=== PATIENT | female | born 1970 | race African-American/Black ===

== ENCOUNTER 2016-05-05 14:36 | Inpatient (IN) | payer BC ==
[~2016-05-05] VITALS: Ht 175.3 cm; Wt 117.9 kg
--- NOTE | ~2016-05-05 | 2DMMODE ---
[facility] [employer] [place] [address] 2 D/M-MODE ECHOCARDIOGRAM Name: AALIYAH VERGARA Room #: 401-I ADM IN .R.#: [id number] Admission: 05/05/16 Attend Phys: Cely Sevilla Discharge: Date of : 68 Date of Service: 05/08/16 1052 Report #: [id number] THIS REPORT FOR: //name// Transthoracic Echocardiography Ordering physician: Dayne Da Silva Referring physician: Rogelio Barbour M.D., FBrittany Mckinnon, Dayne Chau Director Organizational: [employer] Indications/History: Dyspnea, Asthma. BP: 154 / HR: 80bpm Height: 69in Weight: 259.5lb 82 Study data: M-mode, complete 2D, complete spectral Doppler, and color Doppler. Location: Echo laboratory. Routine. Image quality was fair. 2D measurements Normal Normal LVID ED 49.6mm 36-57 IVS ED 8.9mm 6-11 LVID ES 32.9mm 23-40 LVPW ED 8.8mm 6-11 LA volume 18ml/m2 16-28 AoRoot diam 29.5mm 21-37 index ED LVOT diameter 22mm 18-23 Findings: Left ventricle: The cavity size was normal. Wall thickness was normal. Systolic function was normal. The estimated ejection fraction was in the range of 60% to 65%. Wall motion was normal. Right ventricle: The cavity size was normal. Systolic function was normal. Right atrium: The atrium was normal in size. Left atrium: The atrium was normal in size. Volume index: 18ml/m2 (S). Aortic valve: Trileaflet. Doppler: There was no stenosis. No regurgitation. Peak velocity: 146.1cm/s [facility] [address] [place] [address] 2 D/M-MODE ECHOCARDIOGRAM Name: AALIYAH VERGARA Room #: 401-I [facility] IN Calli#: [id number] Admission: 05/05/16 Attend Phys: Daynecarley Da Silva Cely Discharge: Date of : 68 Date of Service: 05/08/16 1052 Report #: [id number] ([id number]). Mitral valve: Structurally normal valve. Doppler: There was no evidence for stenosis. Trivial regurgitation. Peak E-wave velocity: 106.5cm/s. Peak gradient: 4.5mm Hg (D). Peak A-wave velocity: 84.1cm/s. Tricuspid valve: Structurally normal valve. Doppler: There was no evidence for stenosis. Trivial regurgitation. Pulmonic valve: Structurally normal valve. Doppler: There was no evidence for stenosis. No regurgitation. Pericardium: There was no pericardial effusion. Aorta: Aortic root: The aortic root was normal in size. Pulmonary artery: Pressure could not be reliably determined due to minimal or absent tricuspid insufficiency jet, but pulmonary hypertension was not suggested. Diastolic function: Normal diastolic function. Systemic veins: Inferior vena cava: The vessel was normal in size; the respirophasic diameter changes were in the normal range (= 50%). Conclusions Left ventricle: Systolic function was normal. The estimated ejection fraction was in the range of 60% to 65%. <ELECTRONICALLY SIGNED> By: Rogelio Barbour MD, [facility] 05/08/16 1151 1052 1151 Rogelio Barbour MD, [facility] /polo
--- NOTE | ~2016-05-05 | EKG ---
[place] [address] [facility] [place] [address] ELECTROCARDIOGRAM REPORT Name: AALIYAH VERAGRA Room #: 541-P ADM IN M.R.#: [id number] Admission: 05/05/16 Attend Phys: Dayne Da Silva MD Discharge: Date of : 68 Report #: [id number] THIS REPORT FOR: //name// [facility] Test Date: 2016-05-05 Test Time: 16:51:20 Pat Name: AALIYAH BUSCHLER Department: Room: 541 Gender: F First Aid Director: Cely CARABALLO : 1970 Requested By: Dayne Da Silva Order Number: [id number] MD: Oleg Espana Measurements Intervals [place] Rate: 82 P: 36 CO: 151 QRS: 63 QRSD: 78 T: 36 QT: 392 QTc: 458 Interpretive Statements Sinus rhythm No significant abnormality No previous ECG available for comparison Electronically Signed On 05-07-2016 14:05:21 TRACK REPAIR PERSON by Oleg Espana [email or web address] <ELECTRONICALLY SIGNED> By: Oleg Espana MD, [facility] 05/07/16 1405 1651 50 Oleg Espana MD, FACC /EPI
--- NOTE | ~2016-05-05 | H ---
[facility] [place] [address] [place] [address] HISTORY AND PHYSICAL Name: AALIYAH VERGARA Room #: 541-P [facility] IN M.R.#: [id number] Admission: 05/05/16 Attend Phys: Dayne Da Silva MD Discharge: Date of : 68 Report #: [id number] THIS REPORT FOR: //name// CC: Jean Da Silva DATE OF SERVICE: 05/05/2016 CHIEF COMPLAINT: Shortness of breath and cough. HISTORY OF PRESENT ILLNESS: The patient is a 46-year-old female with history of asthma, adult onset, presented to the Emergency Room complaining of shortness of breath and cough. The patient was referred for admission from Dr. Mckinnon's office. The patient has had shortness of breath and cough since end of February. She took azithromycin initially and then, she just recently completed a round of doxycycline a few days ago. She has some discomfort with the cough. She has also been having increasing wheeze in spite of being on steroids and nebulizers at home. Cough has been mostly dry except for over the last few days when it has been low tinged. No history of any hemoptysis. The patient denies any fever or chills. She has gained some weight over the last month or so. PAST MEDICAL HISTORY: Significant for asthma. No history of hypertension, no diabetes, no coronary artery disease. 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 She has a muscle stretch in her lower extremity, history of hysterectomy. History of section x 2. No history of any peptic ulcer disease or bleeding disorder. ALLERGIES: She is allergic to SULFA causes rash. HOME MEDICATIONS: Include Xopenex, Singulair, loratadine, Asmanex. She has been taking prednisone since end of February. SOCIAL HISTORY: No smoking, alcohol abuse or illicit drug abuse. The patient works at the [employer]. Apparently, she works down in the basement, which is kind of lilian and also, they have been doing some work on the vent in the basement. FAMILY HISTORY: Significant for hypertension. REVIEW OF SYSTEMS: CONSTITUTIONAL: She has gained some weight. No fever, no chills. EYES: No change in vision. THROAT: Denies any sore throat. CARDIOVASCULAR: No dizziness. No palpitation. RESPIRATORY: As above. [facility] [address] [place] [address] HISTORY AND PHYSICAL Name: AALIYAH EVRGARA Room #: 541-P [facility] IN ..#: [id number] Admission: 05/05/16 Attend Phys: Dayne Da Silva MD Discharge: Date of : 68 Report #: [id number] GASTROINTESTINAL: No nausea, vomiting, abdominal pain. GENITOURINARY: No dysuria, hematuria. NEUROLOGIC: No focal numbness or weakness of the extremities. PSYCHIATRIC: No anxiety or depression. A 12-point review of system is negative other than the positive and negative dictated in the history of present illness and the review of system. PHYSICAL EXAMINATION: VITAL SIGNS: Reviewed. GENERAL: The patient is awake and alert, not in acute respiratory distress. EYES: Pupils equal, reactive to light, nonicteric conjunctivae. THROAT: Appears normal. NECK: Supple, no JVD, no bruit, no lymphadenopathy. CARDIOVASCULAR SYSTEM: S1, S2, negative S3, no murmur. CHEST: Bilateral air entry present. Expiration is prolonged, bilateral wheeze present. Poor air movement. ABDOMEN: Soft, bowel sounds present, no mass, no organomegaly, no tenderness. PERIPHERY: No pedal edema. No calf tenderness. Dorsalis pedis 1+. NEUROLOGICAL: No gross motor or sensory deficit. LABORATORY DATA: Pending. ASSESSMENT: 1. Acute on chronic respiratory failure secondary to asthma exacerbation. 2. Asthma exacerbation. The patient will be started on IV steroid and nebulizer. We will obtain sputum culture and sensitivity and chest x-ray. We will start her on IV levofloxacin. I will also send for a viral PCR and also for influenza test. We will consult Drivers' Cash Clerk. 3. Deep venous thrombosis prophylaxis. The patient will be placed on Lovenox for deep venous thrombosis prophylaxis. 4. Oral thrush. The patient will be placed on nystatin swish and swallow. 5. Insomnia. She will be started on p.r.n. Ambien. 6. Allergic rhinitis. We will add Flonase. Treatment plan has been explained to the patient in detail. <ELECTRONICALLY SIGNED> By: Dayne Da Silva MD 05/06/16 1146 1537 1739 Dayne Da Silva MD /nt
--- NOTE | ~2016-05-05 | HC ---
[facility] [place] [address] [place] [address] CONSULTATION Name: AALIYAH VERGARA Room #: 401-I [facility] IN ..#: [id number] Admission: 05/05/16 Attend Phys: Dayne Da Silva MD Discharge: 05/09/16 Date of : 68 Report #: [id number] THIS REPORT FOR: //name// CC: Jean Da Silva PRIMARY CARE PHYSICIAN: Narinder Mckinnon M.D. REFERRING PHYSICIAN: Dayne Da Silva M.D. REASON FOR REFERRAL: Exacerbation of asthma. HISTORY OF PRESENT ILLNESS: The patient is a 46-year-old -[place] female who has been admitted for dyspnea. She has asthma. A pulmonary consultation was requested. The patient was diagnosed with asthma about 6 years ago. She was last seen by Dr. Rao 5 years ago. She is on maintenance inhaled bronchodilator therapy along with steroid therapy. She had been doing very well until February of past year when she started to develop cough and chest congestion and dyspnea. Symptoms progressively worsened to where she was admitted. She has a mild cough productive of yellowish sputum. Otherwise, denies any fever, chest pain, hemoptysis, nausea, vomiting or diarrhea. The patient has smoked for about 10 years, but quit 2 years ago after smoking about a pack a day. Otherwise, denies any past history of respiratory failure. PAST MEDICAL HISTORY: She was born premature. She had undergone heart surgery in the past. She has allergies primary during late fall and winter months. Diagnosis of asthma as mentioned above. Gastroesophageal reflux disease. PAST SURGICAL HISTORY: She has had heart surgery along with hysterectomy. ALLERGIES: To SULFA, which causes hives. HOME MEDICATIONS: Include Xopenex (albuterol does not help), Asmanex, Sudafed p.r.n., Singulair and fluticasone nasal spray. She also takes loratadine. FAMILY HISTORY: Remarkable for diabetes and hypertension. SOCIAL HISTORY: She is , has 2 children. Tobacco history as mentioned above. She denies any alcohol use. She works in [employer]. REVIEW OF SYSTEMS: As mentioned above; otherwise, 10-point system review negative. [facility] [address] [place] [address] CONSULTATION Name: AALIYAH VERGARA Room #: 401-I [facility]#: [id number] Admission: 05/05/16 Attend Phys: Dayne Da Silva MD Discharge: 05/09/16 Date of : 68 Report #: [id number] PHYSICAL EXAMINATION: GENERAL: She is awake and alert, in no apparent distress. VITAL SIGNS: Pulse is 93, respiratory rate is 22, blood pressure 146/95 mmHg and saturation is 100%. HEENT: Normocephalic and atraumatic. NECK: Supple without any lymphadenopathy or thyromegaly. CHEST: Breath sounds are decreased bilaterally without any obvious rales or wheezes. CARDIOVASCULAR: Heart sounds are distant. No obvious murmurs or gallop. Pulses are 2+/4+ bilaterally. BREASTS: Exam is deferred. ABDOMEN: Soft and nontender, no organomegaly or masses felt. GENITOURINARY: Deferred. RECTAL: Deferred. EXTREMITIES: There is no edema, cyanosis or clubbing. LABORATORY DATA: Chest x-ray revealed clear lung kirkpatrick. Rest of the laboratory data is pending. IMPRESSION: 1. Exacerbation of asthma, appears to be mild persistent. 2. Possible acute bronchitis. 3. Gastroesophageal reflux disease. She has been on antireflux therapy. 4. Allergic rhinitis, primarily during late fall and winter. 5. Moderate obesity. The patient notes that she has been gaining weight over the past few years. RECOMMENDATIONS: Agree with current medical treatment plan to include corticosteroids and bronchodilators. Antibiotics is appropriate, but would consider switching Levaquin to Rocephin or doxycycline given recent black box warning regarding Levaquin by the FDA. DVT and GI prophylaxis will be addressed. While on high dose systemic corticosteroids, inhaled corticosteroids can be on hold for now. She should be also on antireflux therapy. Thank you for this consultation. <ELECTRONICALLY SIGNED> By: Bran Barrett MD 05/12/16 1634 1725 0004 Bran Barrett MD /nt
[~2016-05-05 14:36] MED LIST: ADVAIR 250-501 EACH IH; AVELOX 400 MG400 MG PO; EXPECTORAN100 MG/5 M PO; FLONASE 0.05%50 MCG NS; K-DUR 20 MEQ T20 MEQ PO; LEVAQUIN 500 M500 M5 PO; NASAL SPRAY45 ML NS; PREDNISONE 5 MG5 M1 PO; PREDNISONE PO; PROTONIX40 M2 PO; SINGULAIR; XOPENEX HF1 UDINHALE IH; XOPENEX0.31 MG/3 IH
[2016-05-05 15:42] VITALS: BP 146/95
[2016-05-05 18:32] LABS: ABSOLUTE NEUTROPHILS 5.2 thou/uL (1.4-8.2); BASOPHILS 1.1 % (0.0-2.0); EOSINOPHILS 1.5 % (0.0-3.0); HEMATOCRIT 43.4 % (37.0-47.0); HEMOGLOBIN 14.8 gm/dL (12.0-15.0); LYMPHOCYTES 30.2 % (24.0-44.0); MCH 29.6 pg (26.0-34.0); MCHC 34.1 % (28.0-37.0); MCV 86.8 fL (80.0-100.0); MONOCYTES 7.9 % (1.0-8.0); PLATELET COUNT 200 thou/uL (150-400); POLYS 59.3 % (36.0-66.0); RDW 14.4 % (10.5-14.5); WBC 8.7 thou/uL (4.0-11.0)
[2016-05-05 18:34] LABS: MANUAL DIFF NO
[2016-05-05 18:48] LABS: ALBUMIN 3.3 g/dL (3.4-5.0); ALKALINE PHOSPHATASE 97 U/L (46-116); ANION GAP 7 mmol/L (7-16); BUN 11 mg/dL (7-18); CALCIUM 8.7 mg/dL (8.5-10.1); CHLORIDE 107 mmol/L (98-107); CO2 30 mmol/L (21-32); CREATININE 1.2 mg/dL (0.6-1.3); GLUCOSE 93 mg/dL (70-99); POTASSIUM 3.6 mmol/L (3.5-5.1); SGOT < 5 U/L (15-37); SGPT 21 U/L (30-65); SODIUM 144 mmol/L (136-145); TOTAL BILIRUBIN 0.4 mg/dL (<0.1-1.0); TOTAL PROTEIN 6.9 g/dL (6.4-8.2)
[2016-05-05 19:59] VITALS: BP 142/103
[2016-05-06 01:47] VITALS: BP 143/81
[2016-05-06 04:51] VITALS: BP 130/80
[2016-05-06 07:47] LABS: ABSOLUTE NEUTROPHILS 11.4 thou/uL (1.4-8.2); BASOPHILS 0.2 % (0.0-2.0); HEMATOCRIT 44.4 % (37.0-47.0); HEMOGLOBIN 14.4 gm/dL (12.0-15.0); LYMPHOCYTES 9.2 % (24.0-44.0); MCHC 32.5 % (28.0-37.0); MCV 89.3 fL (80.0-100.0); MONOCYTES 1.4 % (1.0-8.0); PLATELET COUNT 206 thou/uL (150-400); POLYS 89.2 % (36.0-66.0); RBC 4.97 mil/uL (4.20-5.00); RDW 14.3 % (10.5-14.5); WBC 12.8 thou/uL (4.0-11.0)
[2016-05-06 07:51] LABS: MANUAL DIFF NO
[2016-05-06 07:54] LABS: CREATININE 1.1 mg/dL (0.6-1.3); MAGNESIUM 2.1 mg/dL (1.8-2.4); POTASSIUM 3.9 mmol/L (3.5-5.1)
[2016-05-06 07:56] VITALS: BP 151/78
[2016-05-06 16:31] VITALS: BP 170/53
[2016-05-06 19:20] VITALS: BP 154/73
[2016-05-07 07:14] VITALS: BP 168/78
[2016-05-07 19:40] VITALS: BP 158/83
[2016-05-08 03:35] VITALS: BP 151/88
[2016-05-08 20:00] VITALS: BP 170/99
[2016-05-09 04:00] VITALS: BP 157/105
[2016-05-09 06:18] LABS: HEMATOCRIT 42.6 % (37.0-47.0); HEMOGLOBIN 13.8 gm/dL (12.0-15.0); MCHC 32.4 % (28.0-37.0); MCV 89.5 fL (80.0-100.0); PLATELET COUNT 192 thou/uL (150-400); RBC 4.76 mil/uL (4.20-5.00); RDW 14.6 % (10.5-14.5); WBC 23.4 thou/uL (4.0-11.0)
[2016-05-09 06:22] LABS: MANUAL DIFF YES
[2016-05-09 06:49] LABS: CALCIUM 8.7 mg/dL (8.5-10.1); CREATININE 1.1 mg/dL (0.6-1.3); MAGNESIUM 2.3 mg/dL (1.8-2.4); POTASSIUM 4.1 mmol/L (3.5-5.1)
[2016-05-09 08:00] VITALS: BP 141/92
[2016-05-09 08:45] LABS: TOTAL CELL COUNT 100
[2016-05-09 08:46] LABS: ABSOLUTE NEUTROPHILS 20.6 thou/uL (1.4-8.2); METAMYELOCYTES 1 %
[2016-05-09] MEDS ORDERED: LEVAQUIN 750 M750 MG PO (12:26)
[2016-05-09] MEDS ORDERED: PANTOPRAZOLE SO40 M1 PO (12:26)
[2016-05-09] MEDS ORDERED: DIFLUCAN200 MG PO (12:26)
[2016-05-09] MEDS ORDERED: PREDNISONE 10 M10 MG PO (12:26)
[2016-05-09] MEDS ORDERED: HYDROCODONE-AP1 EAC6 PO (12:33)
[2016-05-09 16:49] VITALS: BP 152/97
[2016-05-09 17:55] VITALS: BP 152/97
== END 2016-05-09 18:42 | disposition home or self-care (01) | DRG 189 ==
LOC: RAD 14:36 → EDSTATUS 14:44 → 5S 14:45 → 4N 14:45
PROVIDERS: Internal Medicine
DX: J96.20 Acute and chronic respiratory failure, unspecified whether with hypoxia or hypercapnia (principal); J45.901 Unspecified asthma with (acute) exacerbation; B37.0 Candidal stomatitis; J30.9 Allergic rhinitis, unspecified; E66.8 Other obesity; G47.00 Insomnia, unspecified; K21.9 Gastro-esophageal reflux disease without esophagitis; Z87.891 Personal history of nicotine dependence; Z90.710 Acquired absence of both cervix and uterus; Z82.49 Family history of ischemic heart disease and other diseases of the circulatory system; Z83.3 Family history of diabetes mellitus; Z68.38 Body mass index [BMI] 38.0-38.9, adult; Z88.2 Allergy status to sulfonamides; Z79.899 Other long term (current) drug therapy; Z23 Encounter for immunization
CPT/HCPCS: 10086; 10790

== ENCOUNTER → 2016-12-29 | Outpatient (CLI) | payer BC ==
[~2016-12-29] MED LIST changes: +DIFLUCAN200 MG PO; +HYDROCODONE-AP1 EAC6 PO; +LEVAQUIN 750 M750 MG PO; +PANTOPRAZOLE SO40 M1 PO; +PREDNISONE 10 M10 MG PO
== END ==
LOC: ULTRA 08:16
DX: R10.9 Unspecified abdominal pain (principal); R14.0 Abdominal distension (gaseous)

== ENCOUNTER → 2017-01-23 | Outpatient (CLI) | payer BC | LOC: NUC 07:33 | DX: K82.8 Other specified diseases of gallbladder (principal) ==

== ENCOUNTER 2017-03-28 05:22 | Day surgery (SDC) | payer BC ==
[~2017-03-28] VITALS: Ht 177.8 cm; Wt 112.0 kg
--- NOTE | ~2017-03-28 | S ---
[facility] [place] [address] [place] [address] SURGICAL PATH RPT PROCEDURE Name: RIA VERGARARoseann Gillis Room #: DEP [facility].#: [id number] Admission: 03/28/17 Date of : 68 Discharge: 03/29/17 Report #: [id number] Path Case #: [id number] PATHOLOGY REPORT COLLECTION DATE: 03/28/2017 RECEIVED DATE: 03/29/2017 SUBMITTING PHYS: Dr. Efren Munoz OTHER PHYS: Dr. Jean Mckinnon SPECIMEN(S) RECEIVED: A.Gallbladder * * * * * * * * * * * * FINAL DIAGNOSIS: Gallbladder "gallbladder cholecystectomy": - Moderate chronic cholecystitis. (SHA:sharona; 03/30/2017) PATHOLOGIST: Pradeep Pretty M.D. REPORT ELECTRONICALLY SIGNED BY: Pradeep Pretty M.D. DATE/TIME: 03/30/2017 13:49 * * * * * * * * * * * * GROSS PATHOLOGY: Received in formalin labeled "Mariah Vergara, gallbladder," is a 7.2 x 1.9 x 1.2 cm, previously opened gallbladder with bile-stained serosal surfaces. Opening the gallbladder reveals a velvety, pink-segundo and lightly bile-stained mucosa and an average wall thickness of 0.1 cm. Calculi are not present and no masses are noted grossly. Golf Ball Trimmer sections from the body and fundus are submitted along with the proximal margin in cassette A1. (CAA; 03/29/2017) CLINICAL HISTORY: Gallbladder disease INITIAL CPT CODE(S): A; 84011 Professional services performed by [facility] at [facility] [address] [place] [address] Technical services performed by [facility] at [address] [place] [id number]. [facility] [address] [place] [address] SURGICAL PATH RPT PROCEDURE Name: MARIAH VERGARA Room #: DEP RIA Andrade#: [id number] Admission: 03/28/17 Date of : 68 Discharge: 03/29/17 Report #: [id number] Path Case #: [id number] [facility] [address] [place] [id number] PHONE: [phone] DIRECTOR: Damion Travis M.D. * * * END OF REPORT * * *
--- NOTE | ~2017-03-28 | H ---
[facility] [place] [address] [place] [address] HISTORY AND PHYSICAL Name: AALIYAH VERGARA Room #: PRE [facility] M..#: [id number] Admission: Attend Phys: Efren Munoz MD Discharge: Date of : 68 Report #: [id number] THIS REPORT FOR: //name// CC: Efren Lu PREOPERATIVE DIAGNOSIS: Cholecystitis, acalculous. HISTORY OF PRESENT ILLNESS: The patient is a 47-year-old who is here for treatment of abdominal pain, this started in mid December. The patient had some fried chicken and has symptoms that were described as "food poisoning." The patient went to the Emergency Room at [facility]. She was told that this probably was gallbladder. The pain started on her left upper quadrant, going across to the right side and then also into her back. The patient is complaining of being nauseated, increased gas and bloating. She has had diarrhea. She has also had chills and sweats. No vomiting. The patient does have a history of reflux and she describes heartburn was worse. The patient has been watching her diet, but once in a while she still would have pain related to eating greasy food or fried food or hamburger. It usually occurs about 15-20 minutes after eating. The patient's mother had gallbladder surgery 2 years ago. The patient had an ultrasound performed on 12/29/2016 and the gallbladder appeared normal. No stones are identified. No bile duct dilatation. The patient had a PIPIDA scan performed. The PIPIDA scan showed abnormal low gallbladder ejection fraction at 11 percent. The patient also had the same pain, with the Kinevac injection. The patient felt to have gallbladder disease and is now brought in for a laparoscopic cholecystectomy. PAST MEDICAL HISTORY: The patient does have a significant history of being premature at and she stayed nearly 2 years in the hospital. PAST SURGICAL HISTORY: She has had an open heart surgery in 1968. History of asthma. Other surgical history includes arthroscopic knee surgery in 1984. The patient had two C-sections in 1991 and then in 2001. ALLERGIES: SHE IS ALLERGIC TO SULFA. MEDICATIONS: The patient's medications include albuterol inhaler 2 puffs as needed, Symbicort 1 puff as needed, ibuprofen 1 a day, Singulair once a day, Xopenex 1 puff as needed, loratadine once a day. FAMILY HISTORY: There is thyroid cancer, hypertension and diabetes in the family. SOCIAL HISTORY: The patient is an executive consultant. She smokes 4 cigarettes a day[place] [address] HISTORY AND PHYSICAL Name: AALIYAH VERGARA Elis Room #: PRE [facility].#: [id number] Admission: Attend Phys: Efren Munoz MD Discharge: Date of : 68 Report #: [id number] REVIEW OF SYSTEMS: The patient wears glasses. No shortness of breath, chest pain, palpitation. No back pain. No numbness, weakness. PHYSICAL EXAMINATION: GENERAL: The patient is a well-developed, well-nourished female in no acute distress. HEENT: Pupils react to light. Extraocular muscles are intact. Oropharynx clear. NECK: Soft and supple, no masses. LUNGS: Clear. No wheezes heard. HEART: Regular rate and rhythm. No murmur or gallop. ABDOMEN: The patient does have localized tenderness in right upper quadrant. No tenderness in the left upper quadrant. No mass, guarding, rigidity or rebound. EXTREMITIES: No cyanosis, clubbing, edema. IMPRESSION: The patient is a 47-year-old with abdominal pain that started in mid December. She has had multiple attacks. They are triggered by food such as greasy or fried food. The patient's ultrasound did not show gallstone. Her PIPIDA scan did reproduce her pain, also had low gallbladder ejection fraction. Mom had her gallbladder out 2 years ago. Clinical history is consistent with gallbladder disease. She is tender over her gallbladder on exam. The patient is recommended to have her gallbladder removed. Laparoscopic cholecystectomy was discussed in detail. Risk of bleeding, infection, common bile duct injury, bile leak was discussed. The patient understands the procedure, the risks involved and wishes to proceed. By: 02 02 Efren Munoz MD /nt
--- NOTE | ~2017-03-28 | EKG ---
[address] [address] ELECTROCARDIOGRAM REPORT Name: AALIYAH VERGARA Room #: 427-P [facility]#: [id number] Admission: 03/28/17 Attend Phys: Efren Munoz MD Discharge: Date of : 68 Report #: [id number] THIS REPORT FOR: //name// [facility] Test Date: 2017-03-28 Test Time: 13:13:05 Pat Name: AALIYAH VERGARA Department: Room: 150 4 Gender: F Job Lithographer: ISHMAEL : 1970 Requested By: Efren Munoz Order Number: [id number] MD: Oj Stevens Measurements Intervals [place] Rate: 85 P: 34 UT: 154 QRS: 68 QRSD: 75 T: 30 QT: 386 QTc: 459 Interpretive Statements Sinus rhythm Probable left atrial enlargement Minimal ST depression, inferior leads Baseline wander in lead(s) V4 Compared to ECG 05/05/2016 16:51:20 ST (T wave) deviation now present Electronically Signed On 03-28-2017 21:19:28 SPRAY DRIER by Oj Stevens [email or web address] <ELECTRONICALLY SIGNED> By: Oj Stevens MD 03/28/17 2119 1313 Oj Stevens MD /EPI
--- NOTE | ~2017-03-28 | O ---
[facility] [place] [address] OPERATIVE REPORT Name: VERGARAAALIYAH D Room #: 429-P [facility]#: [id number] Admission: 03/28/17 Attend Phys: Efren Munoz MD Discharge: Date of : 68 Report #: [id number] THIS REPORT FOR: //name// CC: Efren Lu DATE OF SERVICE: 03/28/2017 PREOPERATIVE DIAGNOSIS: Cholecystitis, acalculous/biliary dyskinesia. POSTOPERATIVE DIAGNOSIS: Cholecystitis, acalculous/biliary dyskinesia plus cholesterolosis. PROCEDURES PERFORMED: Laparoscopic cholecystectomy with cholangiogram. SURGEON: Efren Munoz M.D. ANESTHESIA: General anesthesia. COMPLICATIONS: None. ESTIMATED BLOOD LOSS: 5 mL. FINDINGS: The patient had adhesions from to the level of the umbilicus. The gallbladder had adhesions consistent with chronic inflammation. A 2 mm cholesterol material was found in the gallbladder. Intraoperative cholangiogram appear normal. DESCRIPTION OF PROCEDURE: With the patient under general anesthesia, IV antibiotic was administered. Abdomen was prepped and draped in sterile fashion, timeout was performed. A 0.5% Marcaine was used to anesthetize the skin underneath the umbilicus. A 2 cm incision was made infraumbilically. Fascia was then identified. Fascia was then grasped with hemostat. Fascia was then opened under visualization. A 0-Vicryl suture placed on the fascia for retraction. Veress needle was then placed through the peritoneum, abdominal cavity was insufflated with CO2. After creating pneumoperitoneum pressure of 15, an 11 mm trocar was placed through the fascia defect and there appeared to be adhesion underneath the fascia. The camera was then used inside the trocar and then I was able to tell there is a thin veil just proximal to the trocar that I was able to put the camera through and it then came into the free abdominal cavity superiorly. Two 5 mm trocars were placed in the right upper quadrant, a 5 mm trocar was placed in the epigastrium. A 5 mm scope was then placed through the 5 mm trocar looking downward. Again, the adhesions were identified, likely from her prior . The trocar site is just at the edge of the adhesion. No harm to any tissue underneath this area. The patient [address] [address] OPERATIVE REPORT Name: AALIYAH VERGARA Room #: 429-P [facility].#: [id number] Admission: 03/28/17 Attend Phys: Efren Munoz MD Discharge: Date of : 68 Report #: [id number] was then placed in reverse Trendelenburg position, right side tilted up. The gallbladder did have a fair amount of adhesions to it consistent with inflammation. These adhesions were taken down. The common bile duct is able to be partially visualized medially. Peritoneum over the cystic duct was dissected free. The lymph node was fairly prominent, this sat right over the cystic duct and the artery was slightly superior in its usual position. The lymph node was teased up distally and then removed. Cystic duct was then isolated. There is some fibrosis around the cystic duct. Clip was placed after the cystic duct was freed and the cystic duct gallbladder junction was visualized. A clip was placed at the gallbladder cystic duct junction. Opening was made in the cystic duct proximal to this clip and a cholangiogram catheter was placed. Fluoroscopic cholangiogram was obtained. Common bile duct filled out well. Initially, the left hepatic duct was not able to be seen very well. The right hepatic duct and the common hepatic duct were visualized well. The patient was placed in Trendelenburg position, then the left duct started to fill out more. I do not see any filling defect in the common duct. The cholangiogram catheter was identified in the cystic duct. The cholangiogram catheter was then removed and 2 clips were then placed in the proximal cystic duct. Cystic duct was then divided. The cystic artery was found and this was also isolated, clipped x 2 proximally, one distally and then divided. There was a small lateral branch that was also clipped x 2. Gallbladder was free from the liver bed. There was a small vessel in the bed, this was clipped x 1. Gallbladder was free from the liver bed. Gallbladder was then removed through the infraumbilical port site. A 5 mm scope was used at the epigastric site, the grasper was then placed through the infraumbilical trocar and then gallbladder was then evacuated through this trocar site. The gallbladder was opened off the field towards the fundus. There is cholesterol material that is about 2 mm in size, and then there is streaking cholesterolosis identified. No other stone identified. The liver bed was checked, hemostasis was excellent. Clips were intact. Irrigation was performed. Irrigation was aspirated out. Trocars were removed with evacuation of CO2 as much as possible. The fascia defect infraumbilically was closed with [id number] 0 Vicryl x 2. Skin was irrigated and closed with 5-0 PDS. Steri-Strip, Band-Aids applied. By: [id number] Efren Munoz MD /nt
[~2017-03-28 05:22] MED LIST changes: +CLARITIN10 MG PO; +HYDROCHLOROTHIA25 M2 PO; +LEVALBUTER1.25 MG/0. INH; +LEVALBUTEROL TA15 GM INH; +PHENTERMINE H37.5 MG PO; +SINGULAIR 10 MG10 M1 PO; +SYMBICORT160 MCG/4. INH; +VENTOLIN HFA 1818 GM INH; +WELLBUTRIN SR150 MG PO
[2017-03-28 13:14] VITALS: BP 127/82
[2017-03-28 13:14] LABS: CALCIUM 9.5 mg/dL (8.5-10.1); CREATININE 1.2 mg/dL (0.6-1.0); POTASSIUM 3.8 mmol/L (3.5-5.1)
[2017-03-28 17:00] VITALS: BP 125/78
[2017-03-28 20:21] VITALS: BP 122/89
[2017-03-29 05:09] VITALS: BP 102/76
[2017-03-29 07:53] VITALS: BP 108/71
[2017-03-29] MEDS ORDERED: NORCO 5-325 TA1 EACH PO (13:59)
[2017-03-29 16:46] VITALS: BP 111/77
[2017-03-29 17:27] VITALS: BP 111/77
== END 2017-03-29 18:38 | disposition home or self-care (01) ==
LOC: OR 05:22 → TBA 05:22 → OR 13:48 → 4E 17:06 → OR 03-29 18:38
PROVIDERS: Surgery
DX: K81.1 Chronic cholecystitis (principal); K82.8 Other specified diseases of gallbladder; I10 Essential (primary) hypertension; J45.909 Unspecified asthma, uncomplicated; F32.89 Other specified depressive episodes; F41.8 Other specified anxiety disorders; F17.200 Nicotine dependence, unspecified, uncomplicated; Z88.2 Allergy status to sulfonamides; Z79.899 Other long term (current) drug therapy; Z79.891 Long term (current) use of opiate analgesic; Z98.890 Other specified postprocedural states; Z90.710 Acquired absence of both cervix and uterus
CPT/HCPCS: 50010; 50101; 50411; 50555; 50558; 50886; 51489; 53307; 53310; 55245; 55317; 56462; 56525; 56526; 62110; 62900; 70005

== ENCOUNTER → 2018-01-23 | Outpatient (CLI) | payer BC ==
[~2018-01-23] MED LIST changes: +AZITHROMYCIN 2250 MG PO; +KEFLEX500 M1 PO; +NORCO 5-325 TA1 EACH PO; +PREDNISONE 20 M20 M1 PO
== END ==
LOC: RAD 13:21
DX: J45.909 Unspecified asthma, uncomplicated (principal); K21.9 Gastro-esophageal reflux disease without esophagitis

== ENCOUNTER → 2018-03-12 | Outpatient (CLI) | payer BC | LOC: RAD 09:35 | DX: J45.901 Unspecified asthma with (acute) exacerbation (principal); M41.84 Other forms of scoliosis, thoracic region ==

== ENCOUNTER → 2018-08-20 | Outpatient (CLI) | payer BC | LOC: RAD 08:41 | DX: J45.909 Unspecified asthma, uncomplicated (principal) ==

== ENCOUNTER 2018-11-08 09:13 | Emergency (ER) | payer BC ==
[2018-11-08 11:29] LABS: HEMOGLOBIN 13.5 gm/dL (12.0-15.0); MCH 29.5 pg (26.0-34.0); MCHC 33.8 g/dL (28.0-37.0); MCV 87.4 fL (80.0-100.0); RBC 4.58 mil/uL (4.20-5.00); RDW 14.2 % (10.5-14.5); WBC 7.1 thou/uL (4.0-11.0)
[2018-11-08 11:37] LABS: CALCIUM 8.5 mg/dL (8.5-10.1); CREATININE 1.1 mg/dL (0.6-1.0)
[2018-11-08 11:39] LABS: POTASSIUM 2.9 mmol/L (3.5-5.1)
[2018-11-08] MEDS ORDERED: PREDNISONE 20 M20 MG PO (11:58)
[2018-11-08] MEDS ORDERED: POTASSIUM20 PO (11:58)
[2018-11-08] MEDS ORDERED: ZPAK PO (11:58)
[2018-11-08 12:44] VITALS: BP 130/84
== END 2018-11-08 12:48 | disposition home or self-care (01) ==
LOC: ER 09:13
PROVIDERS: Emergency Medicine
DX: J45.901 Unspecified asthma with (acute) exacerbation (principal); E87.6 Hypokalemia; J06.9 Acute upper respiratory infection, unspecified; Z88.2 Allergy status to sulfonamides; Z88.8 Allergy status to other drugs, medicaments and biological substances

== ENCOUNTER → 2020-10-11 | Outpatient (CLI) | payer BC ==
[~2020-10-11] MED LIST changes: +FLONASE 0.05%50 MCG NARES; +OMEPRAZOLE 20 M20 M1 PO; +POTASSIUM20 PO; +PREDNISONE 20 M20 MG PO; +PROAIR HFA8.5 GM INH; +TIZANIDINE HCL2 M1 PO; +XOPENEX0.63 MG/3 INH; +ZPAK PO
[2020-10-11 09:27] LABS: HEMATOCRIT 44.9 % (37.0-47.0); HEMOGLOBIN 14.8 gm/dL (12.0-15.0); MCH 29.5 pg (26.0-34.0); MCV 89.2 fL (80.0-100.0); RBC 5.04 mil/uL (4.20-5.00); RDW 14.7 % (10.5-14.5); WBC 7.3 thou/uL (4.0-11.0)
[2020-10-11 09:35] LABS: URINE BILIRUBIN NEGATIVE (Negative); URINE BLOOD NEGATIVE (Negative); URINE CLARITY CLEAR; URINE COLOR YELLOW; URINE GLUCOSE-RANDOM* NEGATIVE (Negative); URINE KETONES NEGATIVE (Negative); URINE LEUKOCYTES-REFLEX NEGATIVE (Negative); URINE NITRITE-REFLEX NEGATIVE (Negative); URINE PROTEIN (DIPSTICK) NEGATIVE (Negative); URINE UROBILINOGEN 0.2 E.U./dl (0.2-1.0)
[2020-10-11 09:41] LABS: ALBUMIN 3.6 g/dL (3.4-5.0); CALCIUM 8.7 mg/dL (8.5-10.1); CREATININE 1.1 mg/dL (0.6-1.0); POTASSIUM 3.7 mmol/L (3.5-5.1); TOTAL BILIRUBIN 0.6 mg/dL (0.2-1.0); TOTAL PROTEIN 7.3 g/dL (6.4-8.2)
[2020-10-11 10:29] LABS: APTT 26.9 Seconds (24.5-32.8); INR 0.98; PROTIME 10.7 Seconds (10.5-12.1)
--- NOTE | 2020-10-11 10:40 | EKG ---
[address] [place] [address] ELECTROCARDIOGRAM REPORT Name: AALIYAH VERGARA [id number] Admission: 10/11/20 Attend Phys: Jer Hubbard, Discharge: Date of : 68 Report #: [id number] [facility] Test Date: 2020-10-11 Test Time: 09:21:01 Pat Name: AALIYAH VERGARA Department: Room: Gender: F Collections Associate: TIM : 1970 Requested By: Jer Hubbard Order Number: [id number] MD: Ben Helms Measurements Intervals [place] Rate: 82 P: 37 MS: 157 QRS: 53 QRSD: 80 T: 17 QT: 382 QTc: 446 Interpretive Statements Sinus rhythm Minimal ST depression, inferior leads Minimal ST elevation, anterior leads Compared to ECG 03/28/2017 13:13:05 No significant changes Electronically Signed On 10-11-2020 10:40:05 CDT by Ben Helms [email or web address] <ELECTRONICALLY SIGNED> By: Ben Helms MD, [facility] 10/11/20 1040 0 0 Ben Helms MD, FACC /EPI
== END ==
LOC: PAC 08:36
PROVIDERS: ATTEND Specialist
DX: Z01.818 Encounter for other preprocedural examination (principal); M48.02 Spinal stenosis, cervical region

== ENCOUNTER 2020-10-18 09:18 | Inpatient (IN) | payer BC ==
[~2020-10-18] VITALS: Ht 177.8 cm; Wt 130.2 kg
[2020-10-18 10:40] VITALS: BP 141/90
[2020-10-18 20:17] VITALS: BP 165/97
[2020-10-19 00:44] VITALS: BP 150/94
--- NOTE | 2020-10-19 04:10 | NUR ---
RECEIVED CARE OF THIS PATIENT AT 1900. PATIENT ALERT AND ORIENTED X4. ACCORDING TO PATIENT AND FAMILY, ARRIVED ON UNIT AT 181 VIA CART FROM PACU. HAS DRESSING ON R NECK THAT IS D/I. C/O PAIN, MED GIVEN. HAS NO ADMIT ORDER OR CODE STATUS. CALLED DR GILMROE'S OFFICE FOR THOSE ORDERS. HAD NO DIET ORDER, CALLED Grecia AGUILERA NP FOR THAT ORDER. WAS USING BEDPAN AT FIRST, NOW USES BSC. SLEPT OFF AND ON DURING NIGHT.
[2020-10-19 07:30] VITALS: BP 144/90
--- NOTE | 2020-10-19 11:56 | NUR ---
ASSUMED PT CARE THIS AM. PT IS ALERT & ORIENTED X4 PT HAS IV SITE ON L FA SALINE LOCKED. PT IS UP WITH ASSIST X1. PT HAD NECK SURGERY YESTERDAY. PT IS ON ROOM AIR. PT WORKING WITH PHYSICAL THERAPY TODAY AND DID WELL. PT C/O OF PAIN AND GIVEN PAIN MEDICATION PER PT REQUEST. GIVEN KETOROLAC PER DR ORDERED THIS AM. PT TOLERATED MEDICATION AND DIET WELL. PT ON THE BED, BED ON THE LOWEST POSITION, SIDE RAILS UP, CALL LIGHT WITHIN REACH. WILL CONTINUE TO MONITOR PT. FOLLOW POC.
[2020-10-19 14:56] VITALS: BP 149/90
[2020-10-19 19:15] VITALS: BP 156/94
--- NOTE | 2020-10-20 04:02 | NUR ---
RECEIVED CARE OF THIS PATIENT AT 1900. PATIENT ALERT AND ORIENTED X4. C/O PAIN, MED WAS GIVEN SOON WAS UP FROM PHARMACY. DRESSING ON NECK WAS CHANGED. INCISION WITH EDGES WELL APPROXIMATED. NO DRAINAGE NOTED. SLEPT MOST OF NIGHT.
[2020-10-20 07:35] VITALS: BP 123/72
--- NOTE | 2020-10-20 08:57 | NUR ---
LATE ENTRY 10/19/20 ASSESSMENT: CM REVIEWED CHART AND SPOKE WITH PT AT THE BEDSIDE. PT REPORTS LIVING AT HOME WITH HER AND DAUGHTER. 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 PT REPORTS HE HAS 5 STEPS WITH HANDRAIL TO ENTER HIS HOME AND NO STEPS SHE WILL HAVE TO USE ONCE INSIDE. PT REPORTS SHE HAD HH YEARS AGO BUT CANNOT RECALL THE AGENXY. PT REPORTS BEING INDEPENDENT WITH ADLS. PT WORKED WITH [employer] AND DID WELL AND MAY NEED WALKER TO HOME USE. CM WILL CONTINUE TO FOLLOW TO ASSIST NEEDED
[2020-10-20 11:39] VITALS: BP 123/72
--- NOTE | 2020-10-20 11:40 | NUR ---
ON-GOING ASSESSMENT: CM REVIEWED CHART AND SPOKE WITH PATIENT. PT USED A WALKER WITH THERAPY YESTERDAY AND WOULD BENEFIT FROM ONE AT HOME. PT IS AGREEABLE AND HAS NO PREFERENCE OF DME COMPANY. CM REACHED OUT TO [employer] AND SPOKE WITH ARACELI WHO REPORTS SHE VERIFIED INSURANCE AND A WALKER CAN BE ISSUED TO HER. CM NOTIFIED PHYSICAL THERAPIST TO PLEASE ISSUE A WALKER TO PATIENT. PT SHOULD HAVE NO FURTHER NEEDS FROM CM PRIOR TO DISCHARGE.
--- NOTE | 2020-10-20 12:21 | NUR ---
ASSUMED PT CARE AROUND 0720. PT ALERT X ORIENTED X4. ON ROOM AIR. STANDBY ASST TO BEDSIDE COMMODE. ALSO. ON REGULAR DIET. IV LF FA/SALINE LOCKED. PAIN OF 8, NOTED, SLIGHT PAIN RELIEF ON PAIN MEDS. PATIENT SAYING HER PAIN TRIGGERED HER ASTHMA. SCHED BREATHING TRAETMENT Q 6HRS. WORKED WITH OT. CALL LIGHT IN REACH. WILL CALL APPROPRIATELY. WILL CONT TO MONITOR.
[2020-10-20 15:56] VITALS: BP 116/75
[2020-10-20 19:58] VITALS: BP 160/85
[2020-10-21 07:39] VITALS: BP 136/83
--- NOTE | 2020-10-21 08:43 | NUR ---
PT AMBULATING TO BATHROOM WITH STANDBY ASSIST AND IS TOLERATING FAIR. PERCOCET PROVIDING PAIN RELIEF. RESTING COMFORTABLY. NO NEEDS VOICED. CALL LIGHT WITHIN REACH. FREQUENT OBSERVATION.
--- NOTE | 2020-10-21 11:17 | NUR ---
ASSUMED PT CARE AROUND 0700. PT ALERT X ORIENTED X 4. ON ROOM AIR. IV LEFT FORE ARM SALINE LOCKED. STAND BY ASST TO BATHROOM. PAIN PARTIALLY CONTROLLED BY PAIN MEDS. CALL LIGHT IN REACH. WILL CALL FOR HELP. WILL CONT TO MONITOR.
[2020-10-21] MEDS ORDERED: PREDNISONE 20 M20 M1 PO (12:07)
--- NOTE | 2020-10-21 14:24 | NUR ---
ON-GOING ASSESSMENT: CM REVIEWED CHART. PT WAS ISSUED A WALKER. PT HAS NO FURTHER NEEDS FROM CM. PT IS DISCHARGING HOME TODAY.
== END 2020-10-21 12:50 | disposition home or self-care (01) | DRG 472 ==
LOC: OR → 4S 19:01
PROVIDERS: ADMIT Specialist; ATTEND Specialist
PROC: 0RG20K0 Fusion of 2 or more Cervical Vertebral Joints with Nonautologous Tissue Substitute, Anterior Approach, Anterior Column, Open Approach (ICD-10-PCS; principal; 2020-10-18)
PROC: 01N10ZZ Release Cervical Nerve, Open Approach (ICD-10-PCS; principal; 2020-10-18)
PROC: 0RB30ZZ Excision of Cervical Vertebral Disc, Open Approach (ICD-10-PCS; principal; 2020-10-18)
DX: M48.02 Spinal stenosis, cervical region (principal); G95.29 Other cord compression; I48.91 Unspecified atrial fibrillation; K21.9 Gastro-esophageal reflux disease without esophagitis; F17.210 Nicotine dependence, cigarettes, uncomplicated; J44.9 Chronic obstructive pulmonary disease, unspecified; M47.812 Spondylosis without myelopathy or radiculopathy, cervical region; Z90.49 Acquired absence of other specified parts of digestive tract; Z90.710 Acquired absence of both cervix and uterus
CPT/HCPCS: 10102; 50010; 50101; 50402; 51725; 51751; 55340; 56526; 56529; 57103; 58456; 58834; 58838; 58845; 58846; 62110; 62900; 65130; 70005